=== PATIENT | female | born 1955 | race Caucasian/White ===

== ENCOUNTER → 2018-01-05 | Outpatient (REF) | payer OTHER ==
[2018-01-05 13:16] LABS: BACTERIA, URINE SMALL AMOUNT; HYALINE CAST, URINE 0-1 /lpf (0-1); RBC, URINE 0-1 /hpf (0-3); SQUAMOUS EPITHELIAL CELL URINE MOD AMOUNT /hpf (SMALL AMT); WBC, URINE 0-1 /hpf (0-3)
[2018-01-05 13:17] LABS: MICROSCOPIC EXAM PERFORMED
== END ==
LOC: M LAB REF 11:51
DX: R31.9 Hematuria, unspecified (principal)

== ENCOUNTER → 2018-08-07 | Outpatient (REF) | payer OTHER | LOC: M LAB REF 17:32 | DX: D23.5 Other benign neoplasm of skin of trunk (principal) | CPT/HCPCS: 88305 ==

== ENCOUNTER → 2019-01-07 | Outpatient (REF) | payer OTHER ==
[~2019-01-07] MED LIST: ASPI81TA26 PO; CALC600T60 PO; CHLO125TA PO; FLUT50SP12; LISI-672 PO; OSPH1TAB PO
[2019-01-07 13:48] LABS: RBC, URINE 0-1 /hpf (0-3); WBC, URINE 0-1 /hpf (0-3)
[2019-01-07 13:49] LABS: BACTERIA, URINE SMALL AMOUNT; HYALINE CAST, URINE NONE SEEN /lpf (0-1); SQUAMOUS EPITHELIAL CELL URINE SMALL AMOUNT /hpf (SMALL AMT)
== END ==
LOC: M LAB REF 12:51
PROVIDERS: ATTEND Internal Medicine
DX: N39.0 Urinary tract infection, site not specified (principal)

== ENCOUNTER → 2019-09-10 | Outpatient (REF) | payer OTHER ==
[2019-09-10 18:11] LABS: CA 125 9.8 U/ML (<30.2)
== END ==
LOC: M LAB REF 16:32
PROVIDERS: ATTEND Internal Medicine
DX: R19.03 Right lower quadrant abdominal swelling, mass and lump (principal)

== ENCOUNTER 2021-01-12 14:59 | Emergency (ER) | payer OTHER ==
[~2021-01-12] VITALS: Ht 160 cm; Wt 96.8 kg
[~2021-01-12 14:59] MED LIST changes: -LISI-672 PO; +LISI30TA4 PO
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
[2021-01-12] MEDS ORDERED: NEOSPORIN OINT 0.9 GM PKT TOP ONE (16:30)
[2021-01-12] MEDS ORDERED: LIDOCAINE 1% MDV 20ML VIAL SC ONE (16:45)
[2021-01-12] MEDS ORDERED: ACETAMINOPHEN 500 MG TAB PO ONE (17:20)
[2021-01-12] MEDS ORDERED: NAPROXEN 250 MG TAB PO ONE (17:20)
[2021-01-12] MEDS ORDERED: AUGMENTIN 875 MG TAB PO ONE (17:20)
[2021-01-12] MEDS ORDERED: AUGM875T28 PO (17:24)
[2021-01-12 18:35] VITALS: BP 174/100
== END 2021-01-12 18:48 | disposition home or self-care (01) ==
LOC: M ED 14:59
DX: S01.01XA Laceration without foreign body of scalp, initial encounter (principal); S00.81XA Abrasion of other part of head, initial encounter; V49.49XA Driver injured in collision with other motor vehicles in traffic accident, initial encounter; Y92.410 Unspecified street and highway as the place of occurrence of the external cause; I10 Essential (primary) hypertension; Z79.899 Other long term (current) drug therapy; Z79.82 Long term (current) use of aspirin

== ENCOUNTER → 2021-07-16 | Outpatient (CLI) | payer MEDICARE, OTHER ==
[~2021-07-16] MED LIST changes: +AUGM875T28 PO; +BIOT1CAP2 PO; +CETI-36 PO; +D31000TA2 PO; +FLUTISP; +LISI20TA33 PO; +MAGN1CAP PO
== END ==
LOC: M LABSMTC 10:13
PROVIDERS: ATTEND Anesthesiology
DX: Z01.818 Encounter for other preprocedural examination (principal); Z11.52 Encounter for screening for COVID-19

== ENCOUNTER 2021-07-20 08:36 | Day surgery (SDC) | payer MEDICARE, OTHER ==
[~2021-07-20] VITALS: Ht 160 cm; Wt 93.9 kg
[~2021-07-20 08:36] MED LIST changes: +NS 1,000 ML IV ONE
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
--- OUTSIDE RECORDS SUMMARY | 2021-07-20 08:41 | CCD | Continuity of Care Document ---
Author Author Madeline MORGAN N.P. Organization Unknown Address [address] [place] [address] Phone [phone] Care Team Providers Care Front Office Attendant Name Role Phone Shirley Mak M.D. [facility] [phone] Problems Description No Active Problems Social History Type Date Description Comments Sex Unknown ETOH Use 2 A Month Tobacco Use Start: Unknown End: Unknown Patient is a former smoker 1/2 PPD history for 3 years quit in the Smoking Status Reviewed: 06/26/21 Patient is a former smoker 1/ 2 PPD history for 3 years quit in the Allergies and adverse reactions Description No Known Drug Allergies Medications Active Medications SIG Qnty Indications Ordering Provide r Date Sutab [id number] Tablets as directed- see office colon prep instructions 24tabs Z80.0 Raf Peterson MD 04/05/2021 Milk Of Magnesia 1200mg/15ML Suspe nsion take 45 milliliters by mouth as directed on colonoscopy prep sheet. 355ml Z80.0 Raf Peterson MD 04/05/2021 Aspir-Low 81mg Tablets DR allegra pina Unknown Fluticasone Propionate 50mcg/Act Suspension 2 sprays each nostril every day prn Unkno wn Calcium 600mg Tablets daily Unknown Chlorthalidone 25mg Tablets 1/2 by mouth every day Unknown Lisinopril 20mg Tablets 1 by mouth every evening 30tabs Unknown CPAP 7cm - Marras Unknown Magnesium 200mg Tablets 1 tab at bedtime Unknown Biotin 10mg Capsules Unknown Zyrtec Allergy 10mg Capsules 1 by mouth every day Unknown Vitamin D 1 by mouth every day Unknown Estrace 0.1mg/GM Cream twice a week Unknown Immunizations CPT Code Status Date Vaccine Lot # [id number] Given 05/31/2020 Flublock, Quadrivalent 24897 Given 07/01/2018 Influenza Virus Vaccine, Quadrivalent, Slit Virus, Im Use Vital Signs Date Vital Result Comment 06/26/2021 10:27am BP Systolic 132 mmHg BP Diastolic 70 mmHg Heart Rate 69 /min O2 % BldC Oximetry 97 % Height 63 inches 5'3" Weight 211.00 lb BMI (Body Mass Index) 37.4 kg/m2 [place] Body Weight 115 lb Weight 95.710 kg BSA (Body Surface Area) 1.98 m2 04/05/2021 8:47am BP Systolic 141 mmHg BP Diastolic 67 mmHg Height 63 inches 5'3" Weight 214.00 lb BMI (Body Mass Index) 37.9 kg/m2 [place] Body Weight 115 lb Weight 97.070 kg BSA (Body Surface Area) 1.99 m2 Results Description No Information Available Procedures Description No Information Available Medical Devices Description No Information Available Encounters Description No Information Available Assessments Date Code Description Provider 06/26/2021 G47.33 Obstructive sleep apnea (adult) (pediatric) Emilia Morgan, N.P. 04/05/2021 Z80.0 Family history of malignant neop lasm of digestive organs Raf Peterson MD Plan of Treatment Future Appointment(s):* 06/26/2022 9:15 am - Emilia Morgan, N.P. at [facility] Pulmonary/Thoracic * 07/20/2021 11:05 am - Raf Peterson MD at [facility] 06/26/2021 - Emilia Morgan, N.P.* G47.33 Obstructive sleep apnea (adult) (pediatric) * * New Orders:* CPAP/BIPAP Supply, Ordered: 06/26/21 * Comments:* 1. No changes were made to the CPAP pressure at today's visit. 2. The patient is aware to call with any problems related to CPAP use, snoring through the mask or return of daytime sleepiness. 3. Per the patient's request, a CPAP supply order has been sent to the [employer]. * Follow up:* 1. Follow up in one year to reassess CPAP compliance or sooner should problems develop. Functional Status Description No Information Available Mental Status Description No Information Available Referrals Description No Information Available
--- OUTSIDE RECORDS SUMMARY | 2021-07-20 08:41 | CCD | Continuity of Care Document ---
Author Author Madeline MORGAN N.P. Organization Unknown Address [address] [place] [address] Phone [phone] Care Team Providers Care Glove Parts Inspector Name Role Phone Shirley Mak M.D. [facility] [phone] Problems Description No Active Problems Social History [...] Qnty Indications Ordering Provide r Date Sutab [id number] Tablets as directed- see office colon prep [...] D 1 by mouth every day Unknown 0 Estrace 0.1mg/GM Cream twice a week Unknown Immunizations CPT Code Status Date Vaccine Lot # [id number] Given 05/31/2020 Flublock, Quadrivalent 87891 Given 07/01/2018 Influenza Virus Vaccine, Quadrivalent, Slit Virus, Im Use Vital Signs Date Vital Result Comment 06/26/2021 10:27am BP Systolic 132 mmHg BP Diastolic 70 mmHg Heart Rate 69 /min O2 % BldC Oximetry 97 % Height 63 inches 5'3" Weight 211.00 lb BMI (Body Mass Index) 37.4 kg/m2 [place] Body Weight 115 lb Weight 95.710 kg BSA (Body Surface Area) 1.98 m2 04/05/2021 8:47am BP Systolic 141 mmHg BP Diastolic 67 mmHg Height 63 inches 5'3" Weight 214.00 lb BMI (Body Mass Index) 37.9 kg/m2 [place] Body Weight 115 lb Weight 97.070 kg BSA (Body Surface Area) 1.99 m2 Results Description No Information Available Procedures Date Code Description Status 06/26/2021 39854 Office/Outpatient Established Lo w MDM 20-29 Min Completed Medical Devices Description No Information Available Encounters Type Date Location Provider Dx Diagnosis Office Visit 06/26/2021 10:30a [facility] Pulmonary/Thoracic Heather Morgan, N.P. G47.33 Obstructive sleep apnea (adult) (pediatr ic) Assessments Date Code Description Provider 06/26/2021 G47.33 Obstructive sleep apnea (adult) (pediatric) Emilia Morgan, N.P. 04/05/2021 Z80.0 Family history of malignant neop lasm of digestive organs Raf Peterson MD Plan of Treatment Future Appointment(s):* 06/26/2022 9:15 am - Emilia Morgan, N.P. at [facility] Pulmonary/Thoracic * 07/20/2021 11:05 am - Raf Peterson MD at [facility]enterology [facility] 06/26/2021 - Emilia Morgan, N.P.* G47.33 Obstructive sleep apnea (adult) (pediatric) * * Comments:* 1. No changes were made to the CPAP pressure at today's visit. 2. The patient is aware to call with any problems related to CPAP use, snoring through the mask or return of daytime sleepiness. 3. Per the patient's request, a CPAP supply order has been sent to the home[facility] company. * Follow up:* 1. Follow up in one year to reassess CPAP compliance or sooner should problems develop. Functional Status Description No Information Available Mental Status Description No Information Available Referrals Description No Information Available
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
--- OUTSIDE RECORDS SUMMARY | 2021-07-20 08:42 | CCD ---
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 Document(s) Hemoglobin A1c/Hemoglobin.total in Blood 6.3 % [facility] ([facility]) Lab Result Notes: Pre-Diabetes 5.7 - 6.4 % Diabetes = or > 6.5% Glucose mean value [Mass/volume] in Blood Estimated fr om glycated hemoglobin 134 mg/dL 60-110 [facility] ID Date Data Source [id number] 01/09/2021 08:33:00 AM EDT [facility] Name Value Range Interpretation Code Description Data Natasha rce(s) Supporting Document(s) Leukocytes [#/volume] in Blood by Automated count 5.3 x10*3/UL 4.1-10 .9 [facility] Erythrocytes [#/volume] in Blood by Automated count 4.92 x10*6/UL 4.2 0-6.30 [facility] Hemoglobin [Mass/volume] in Blood 13.9 g/dL 12.0-18.0 [facility] Hematocrit [Volume Fraction] of Blood by Automated count 41.3 % 3 7.0-51.0 [facility] ([facility]) MCH 28.2 pg 26.0-32.0 [facility] ([facility]) MCV 83.8 fL 80.0-97.0 [facility] ([facility]) MCHC 33.7 g/dL 31.0-38.0 [facility] ([facility]) MPV 7.8 FL 7.8-11.0 [facility] ([facility]) Erythrocyte distribution width [Ratio] by Automated count 12.8 % 11.6-13.7 [facility] Platelets [#/volume] in Blood by Automated count 306 x10*3/UL 140-440 [facility] Mid % 7.6 % 1.7-9.3 [facility] ([facility]) Neut % 65.2 % 37.0-92.0 [facility] ([facility]) Lymph % 27.2 % 10.0-58.5 [facility] ([facility]) Neut # 3.5 x10*3/UL 2.0-7.8 [facility] ([facility]) Mid # 0.4 x10*3/UL 0.1-0.6 [facility] ([facility]) Lymph # 1.4 x10*3/UL 0.6-4.1 [facility] ([facility]) ID Date Data Source [id number] 01/01/2021 03:19:00 PM EDT [facility] Name Value Range Interpretation Code Description Data Natasha rce(s) Supporting Document(s) Urine Color Laboratory test result Abnormal (applies to non-numeric results) [facility] ([facility]) Urine Appearance Laboratory test result [facility] Urine PH 7.5 units 5.0-9.0 [facility]) Urine Leukocytes Laboratory [facility] Specific gravity of Urine 1.005 1.005-1.030 [place] [facility] ([facility]) Urine Protein Laboratory test result 0-0 [facility] Urine Blood Laboratory test result Abnormal (applies to non-numeric results) [facility] ([facility]) Glucose [Presence] in Urine Laboratory test result [facility] ([facility]) Urine Nitrite Laboratory test result [facility] ([facility]) Urine Ketone Laboratory test result [facility] Urine Urobilinogen 0.2 mg/dL 0.2-1.0 [facility] ([facility]) Bilirubin.total [Mass/volume] in Serum or Plasma Laboratory test resu lt [facility] ([facility]) ID Date Data Source [id number] 08/16/2020 11:05:00 AM EST [facility] ([facility]) Name Value Range Interpretation Code Description Data Natasha rce(s) Supporting Document(s) Magnesium 2.0 mg/dL 1.8-2.4 [facility]) ID Date Data Source [id number] 08/16/2020 11:05:00 AM EST [facility] ([facility]) Name Value Range Interpretation Code Description Data Natasha rce(s) Supporting Document(s) Glucose [Mass/volume] in Serum or Plasma 131 mg/dL 74-99 [facility] ([facility]) 100-125 mg/dL PRE-DIABETES/FASTING >126 mg/dL DIABETES/FASTING Urea nitrogen [Mass/volume] in Serum or Plasma 16 mg/dL 7-18 [facility] ([facility]) Creatinine 0.8 mg/dL 0.6-1.3 [facility] ([facility]) Sodium [Moles/volume] in Serum or Plasma 143 meq/L 136-145 [facility] ([facility]) Potassium [Moles/volume] in Serum or Plasma 4.2 meq/L 3.5-5.1 [facility] ([facility]) Chloride [Moles/volume] in Serum or Plasma 105 meq/L 98-107 [facility] ([facility]) Carbon dioxide, total [Moles/volume] in Serum or Plasma 31 meq/L 21 -32 [facility] ([facility]) Glomerular filtration rate/1.73 sq M pre dicted among non-blacks [Volume Rate/Area] in Serum or Plasma by Creatinine-based formula (MDRD) Laboratory test result [facility] ([facility] ) Calcium [Mass/volume] in Serum or Plasma 9.4 mg/dL 8.5-10.1 [facility] ([facility]) Glomerular filtration rate/1.73 sq M pre dicted among blacks [Volume Rate/Area] in Serum or Plasma by Creatinine-based formula (MDRD) Laboratory test result [facility] ([facility]) <content>CHRONIC KIDNEY DISEASE STAGING PER NKF</content>
<content></content>
<content>STAGE I & II GFR >= 60 NORMAL TO MILDLY DECREASED</content>
<content>STAGE III GFR 30-59 MODERATELY DECREASED</content>
<content>STAGE IV GFR 15-29 SEVERELY DECREASED</content>
<content>STAGE V GFR <15 VERY LITTLE GFR LEFT</content>
<content>ESRD GFR <15 ON CUT OFF MACHINE HELPER</content>
<content></content> ID Date Data Source [id number] 07/25/2020 08:49:00 AM EST [facility] ([facility]) Name Value Range Interpretation Code Description Data Natasha rce(s) Supporting Document(s) Magnesium 1.8 mg/dL 1.8-2.4 [facility] ([facility]) ID Date Data Source [id number] 07/25/2020 08:49:00 AM EST [facility] ([facility]) Name Value Range Interpretation Code Description Data Natasha rce(s) Supporting Document(s) Glucose [Mass/volume] in Serum or Plasma 126 mg/dL 74-99 [facility] ([facility]) 100-125 mg/dL PRE-DIABETES/FASTING >126 mg/dL DIABETES/FASTING Urea nitrogen [Mass/volume] in Serum or Plasma 21 mg/dL 7-18 [facility] ([facility]) Creatinine 0.8 mg/dL 0.6-1.3 [facility] ([facility]) Sodium [Moles/volume] in Serum or Plasma 140 meq/L 136-145 [facility] ([facility]) Potassium [Moles/volume] in Serum or Plasma 4.1 meq/L 3.5-5.1 [facility] ([facility]) Chloride [Moles/volume] in Serum or Plasma 102 meq/L 98-107 [facility] ([facility]) Carbon dioxide, total [Moles/volume] in Serum or Plasma 30 meq/L 21 -32 [facility] ([facility]) Calcium [Mass/volume] in Serum or Plasma 9.4 mg/dL 8.5-10.1 [facility] ([facility]) Alkaline phosphatase isoenzyme [Units/volume] in Serum or Pl asma 58 mg/dL 46-116 [facility] ([facility]) Total Bilirubin 0.9 mg/dL 0.2-1.0 [facility] ([facility]) Aspartate aminotransferase [Enzymatic activity/volume] in Serum or Plasma 20 U/L 15-37 [facility] ([facility] ) Albumin [Mass/volume] in Serum or Plasma 4.0 g/dL 3.4-5.0 [facility] ([facility]) Alanine aminotransferase [Enzymatic activity/volume] in Seru m or Plasma 34 U/L 12-78 [facility] ([facility]) A/G Ratio 1.21 CALC 1.00-1.90 [facility]) Proteinase 3 Ab [Units/volume] in Serum 7.3 g/dL 6.4-8.2 [facility] ([facility]) Glomerular filtration rate/1.73 sq M pre dicted among non-blacks [Volume Rate/Area] in Serum or Plasma by Creatinine-based formula (MDRD) Laboratory test result [facility] ([facility] ) Glomerular filtration rate/1.73 sq M pre dicted among blacks [Volume Rate/Area] in Serum or Plasma by Creatinine-based formula (MDRD) Laboratory test result [facility] <content>CHRONIC KIDNEY DISEASE STAGING PER NKF</content>
<content></content>
<content>STAGE I & II GFR >= 60 NORMAL TO MILDLY DECREASED</content>
<content>STAGE III GFR 30-59 MODERATELY DECREASED</content>
<content>STAGE IV GFR 15-29 SEVERELY DECREASED</content>
<content>STAGE V GFR <15 VERY LITTLE GFR LEFT</content>
<content>ESRD GFR <15 ON CUT OFF MACHINE HELPER</content>
<content></content> ID Date Data Source [id number] 07/25/2020 08:49:00 AM EST [facility] ([facility] Name Value Range Interpretation Code Description Data Natasha rce(s) Supporting Document(s) Glucose mean value [Mass/volume] in Blood Estimated fr om glycated hemoglobin 134 mg/dL 60-110 [facility] Hemoglobin A1c/Hemoglobin.total in Blood 6.3 % [facility] ([facility]) Lab Result Notes: Pre-Diabetes 5.7 - 6.4 % Diabetes = or > 6.5% ID Date Data Source [id number] 07/25/2020 08:49:00 AM EST [facility] ([facility] Name Value Range Interpretation Code Description Data Natasha rce(s) Supporting Document(s) Erythrocytes [#/volume] in Blood by Automated count 4.84 x10*6/UL 4.2 0-6.30 [facility] ([facility]) Leukocytes [#/volume] in Blood by Automated count 6.9 x10*3/UL 4.1-10 .9 [facility] ([facility]) Hemoglobin [Mass/volume] in Blood 14.6 g/dL 12.0-18.0 [facility] Hematocrit [Volume Fraction] of Blood by Automated count 42.8 % 3 7.0-51.0 [facility] ([facility]) MCV 88.4 fL 80.0-97.0 [facility] ([facility]) MCH 30.2 pg 26.0-32.0 [facility] ([facility]) Erythrocyte distribution width [Ratio] by Automated count 12.7 % 11.6-13.7 [facility] ([facility]) MCHC 34.2 g/dL 31.0-38.0 [facility] MPV 7.9 FL 7.8-11.0 [facility] ([facility]) Platelets [#/volume] in Blood by Automated count 264 x10*3/UL 140-440 [facility] ([facility]) Lymph % 22.2 % 10.0-58.5 [facility] Mid % 6.3 % 1.7-9.3 [facility] Lymph # 1.5 x10*3/UL 0.6-4.1 [facility] ([facility]) Neut % 71.5 % 37.0-92.0 [facility] Neut # 4.9 x10*3/UL 2.0-7.8 [facility] ([facility]) Mid # 0.5 x10*3/UL 0.1-0.6 [facility] ([facility]) ID Date Data Source [id number] 07/25/2020 08:49:00 AM EST [facility]) Name Value Range Interpretation Code Description Data Natasha rce(s) Supporting Document(s) Hemoglobin A1c/Hemoglobin.total in Blood Laboratory test result [facility] ([facility]) Procedure Social History Code Duration Value Status Description Data Source(s ) Smoking 06/26/2021 12:00:00 AM EDT Patient is a former smoker completed Patient is a former smoker [facility] ([facility]) Vital Signs ID Date Data Source UNK Name Value Range Interpretation Code Description Data Source(s) Body height 63 [in_i] 63 [in_i] [facility] ([facility]) 5'3" [place] body weight 115 [lb_av] 115 [lb_av] [facility] ([facility]) Body weight 95.710 kg 95.710 kg [facility] ([facility]) Systolic blood pressure 132 mm[Hg] 132 mm[Hg] [facility] Diastolic blood pressure 70 mm[Hg] 70 mm[Hg] [facility] ([facility]) Heart rate 69 /min 69 /min [facility] ([facility]) Oxygen saturation in Arterial blood by Pulse oximetry 97 % 97 % [facility] ([facility]) Body weight 211.00 [lb_av] 211.00 [lb_av] [facility] ([facility]) Body mass index (BMI) [Ratio] 37.4 kg/m2 37.4 k g/m2 [facility] ([facility]) Body surface area Derived from formula 1.98 m2 1.98 m2 [facility] ([facility]) [place] body weight 115 [lb_av] 115 [lb_av] [facility] T ([facility]) Systolic blood pressure 141 mm[Hg] 141 mm[Hg] [facility] ([facility]) Diastolic blood pressure 67 mm[Hg] 67 mm[Hg] [facility] ([facility]) Body height 63 [in_i] 63 [in_i] [facility] ([facility]) 5'3" Body weight 214.00 [lb_av] 214.00 [lb_av] [facility] T ([facility]) Body mass index (BMI) [Ratio] 37.9 kg/m2 37.9 k g/m2 [facility] ([facility]) Body weight 97.070 kg 97.070 kg [facility] ([facility]) Body surface area Derived from formula 1.99 m2 1.99 m2 [facility] ([facility]) Systolic blood pressure 124 mm[Hg] 124 mm[Hg] [facility] Diastolic blood pressure 70 mm[Hg] 70 mm[Hg] [facility] ([facility]) Heart rate 64 /min 64 /min [facility] ([facility]) Body height 65 [in_i] 65 [in_i] [facility] 5'5" Body weight 214.00 [lb_av] 214.00 [lb_av] [facility] ([facility]) Body mass index (BMI) [Ratio] 35.6 kg/m2 35.6 k g/m2 [facility] ([facility]) Systolic blood pressure 138 mm[Hg] 138 mm[Hg] [facility] ([facility]) Diastolic blood pressure 80 mm[Hg] 80 mm[Hg] [facility] Body height 65 [in_i] 65 [in_i] [facility] ([facility]) 5'5" Body weight 214.00 [lb_av] 214.00 [lb_av] [facility] ([facility]) Body mass index (BMI) [Ratio] 35.6 kg/m2 35.6 k g/m2 [facility] ([facility]) Systolic blood pressure 156 mm[Hg] 156 mm[Hg] [facility] ([facility]) RT Arm Diastolic blood pressure 88 mm[Hg] 88 mm[Hg] [facility] ([facility]) RT Arm Body weight 216.25 [lb_av] 216.25 [lb_av] [facility] T ([facility]) Body mass index (BMI) [Ratio] 36.0 kg/m2 36.0 k g/m2 [facility] ([facility]) Systolic blood pressure 162 mm[Hg] 162 mm[Hg] [facility]) Diastolic blood pressure 90 mm[Hg] 90 mm[Hg] [facility] ([facility]) Heart rate 64 /min 64 /min [facility] ([facility]) Body height 65 [in_i] 65 [in_i] [facility] ([facility]) 5'5" Systolic blood pressure 138 mm[Hg] 138 mm[Hg] [facility]) Diastolic blood pressure 82 mm[Hg] 82 mm[Hg] [facility] Heart rate 82 /min 82 /min [facility] ([facility]) Body height 65 [in_i] 65 [in_i] [facility] ([facility]) 5'5" Body weight 215.00 [lb_av] 215.00 [lb_av] [facility] T ([facility]) Body mass index (BMI) [Ratio] 35.8 kg/m2 35.8 k g/m2 [facility] ([facility]) Body weight 217.00 [lb_av] 217.00 [lb_av] [facility] T ([facility]) Body mass index (BMI) [Ratio] 36.1 kg/m2 36.1 k g/m2 [facility] ([facility]) Systolic blood pressure 170 mm[Hg] 170 mm[Hg] [facility] ([facility]) RT Arm Diastolic blood pressure 94 mm[Hg] 94 mm[Hg] [facility] RT Arm Systolic blood pressure 120 mm[Hg] 120 mm[Hg] [facility] Diastolic blood pressure 86 mm[Hg] 86 mm[Hg] [facility] Heart rate 68 /min 68 /min [facility] ([facility]) Body height 65 [in_i] 65 [in_i] [facility] ([facility]) 5'5" Body weight 98.204 kg 98.204 kg [facility] ([facility]) Oxygen saturation in Arterial blood by Pulse oximetry 95 % 95 % [facility] ([facility]) Body height 63 [in_i] 63 [in_i] [facility] ([facility]) 5'3" Body weight 216.50 [lb_av] 216.50 [lb_av] [facility] T ([facility]) Body mass index (BMI) [Ratio] 38.3 kg/m2 38.3 k g/m2 [facility] ([facility]) [place] body weight 115 [lb_av] 115 [lb_av] [facility] T ([facility]) Heart rate 75 /min 75 /min [facility] ([facility]) Diastolic blood pressure 82 mm[Hg] 82 mm[Hg] [facility] ([facility]) Systolic blood pressure 142 mm[Hg] 142 mm[Hg] [facility] Body mass index (BMI) [Ratio] 38.3 kg/m2 38.3 k g/m2 [facility] ([facility]) [place] body weight 115 [lb_av] 115 [lb_av] [facility] ([facility]) Body weight 98.204 kg 98.204 kg [facility] ([facility]) Oxygen saturation in Arterial blood by Pulse oximetry 95 % 95 % [facility] ([facility]) Body surface area Derived from formula 2.00 m2 2.00 m2 [facility] ([facility]) Body height 63 [in_i] 63 [in_i] [facility] ([facility] ) 5'3" Body weight 216.50 [lb_av] 216.50 [lb_av] [facility] T ([facility], ) Systolic blood pressure 160 mm[Hg] 160 mm[Hg] M [facility] ([facility]) RT Arm Diastolic blood pressure 86 mm[Hg] 86 mm[Hg] [facility] ([facility]) RT Arm Heart rate 60 /min 60 /min [facility] ([facility]) Body height 65 [in_i] 65 [in_i] [facility] ([facility]) 5'5" Body weight 217.50 [lb_av] 217.50 [lb_av] WILBER Perez ([facility]) Systolic blood pressure 136 mm[Hg] 136 mm[Hg] M BHAVYA ([facility]) Diastolic blood pressure 70 mm[Hg] 70 mm[Hg] [facility] ([facility]) Body mass index (BMI) [Ratio] 36.2 kg/m2 36.2 k g/m2 [facility] ([facility])
[2021-07-20] MEDS ORDERED: LIDOCAINE 2% 100MG/5ML SDV (FOR ANES.) As Ordered ONE (10:00)
[2021-07-20] MEDS ORDERED: propofoL 500 MG/50 ML VIAL As Ordered ONE (10:00)
--- NOTE | 2021-07-20 10:19 | ROOR ---
Patient Name: Madeline Maher Procedure Date: 07/20/2021 9:52 AM Date of : 1955 Age: 66 Room: [facility] Gender: Female Note Status: Finalized Procedure: Colonoscopy Indications: High risk colon cancer surveillance: Personal history of colonic polyps, Family history of colon cancer in a first-degree relative before age 60 years Providers: Raf Peterson MD Referring MD: Shirley PEREZ MD Requesting Provider: Medicines: Monitored Anesthesia Care Complications: No immediate complications. Procedure: Pre-Anesthesia Assessment: - The heart rate, respiratory rate, oxygen saturations, blood pressure, adequacy of pulmonary ventilation, and response to care were monitored throughout the procedure. The Colonoscope was introduced through the anus and advanced to the terminal ileum, with identification of the appendiceal orifice and IC valve. The colonoscopy was performed without difficulty. The patient tolerated the procedure well. The quality of the bowel preparation was good. Findings: The perianal and digital rectal examinations were normal. Small Internal Hemorrhoids. The entire examined colon appeared normal on direct and retroflexion views. Impression: - Small Internal Hemorrhoids. - The entire examined colon is normal on direct and retroflexion views. - No specimens collected. Recommendation: - Repeat colonoscopy in 5 years for screening purposes. Procedure Code(s): --- Professional --- 29770, Colonoscopy, flexible; diagnostic, including collection of specimen(s) by brushing or washing, when performed (separate procedure) Diagnosis Code(s): --- Professional --- Z86.010, Personal history of colonic polyps CPT copyright 2019 [employer]. All rights reserved. The codes documented in this report are preliminary and upon branch director review may be revised to meet current compliance requirements. Raf Peterson MD Raf Peterson MD 07/20/2021 10:19:03 AM Electronically signed by Raf Peterson MD Number of Addenda: 0 Note Initiated On: 07/20/2021 9:52 AM Estimated Blood Loss: Estimated blood loss: none.
[2021-07-20 10:40] VITALS: BP 179/96
== END 2021-07-20 10:55 | disposition home or self-care (01) ==
LOC: M OPP 08:36
PROVIDERS: ATTEND Internal Medicine Gastroenterology
DX: Z12.11 Encounter for screening for malignant neoplasm of colon (principal); K64.8 Other hemorrhoids; Z80.0 Family history of malignant neoplasm of digestive organs; Z86.010 Personal history of colon polyps; Z88.7 Allergy status to serum and vaccine

== ENCOUNTER → 2023-12-17 | Outpatient (CLI) | payer MEDICARE, OTHER ==
[~2023-12-17] MED LIST changes: -D31000TA2 PO; -NS 1,000 ML IV ONE; +VITA100093 PO
== END ==
LOC: M WUC 13:10
PROVIDERS: ATTEND Internal Medicine
DX: R05.9 Cough, unspecified (principal)

== ENCOUNTER → 2024-01-01 | Outpatient (CLI) | payer MEDICARE, OTHER | LOC: M WUC 08:33 | PROVIDERS: ATTEND Otolaryngology | DX: J30.89 Other allergic rhinitis (principal) ==